=== PATIENT | male | born 1945 | race African-American/Black ===

== ENCOUNTER → 2016-04-01 | Outpatient (CLI) | payer OTHER ==
[2015-10-05 09:47] VITALS: BP 122/83
[~2016-04-01] MED LIST: AMLO5TAB2 PO; ASPI81TA2 PO; HYDR-2679 PO; IOHEXOL 180 MG/ML 10 ML VIAL. ONE; NAPR500T3 PO; NISO17TA3 PO; OMEP40CA5 PO; PARO10TA24 PO; SIMV10TA PO; TAMS0.4C97 PO; methylPREDNISolone ACETATE 40 MG/ML VIAL. ONE; methylPREDNISolone ACETATE 80 MG/ML VIAL. ONE
--- NOTE | 2016-04-02 03:26 | PAIN ---
DATE OF SERVICE: 04/01/2016 DIAGNOSES: Lumbar radiculopathy with lumbar spinal stenosis and lumbar spondylosis. HISTORY OF PRESENT ILLNESS: The patient is a 70-year-old male who returns for followup status post lumbar epidural steroid injection x 1 about 90% improvement in pain. The patient reports it is beginning to return now in the low back, bilateral lower extremities as was previously, but not nearly to baseline. The patient reports still aching, burning with some radiation into the bilateral posterior gluteus, posterior thighs, slightly worse on the right than the left, but present bilaterally. The patient reports it as an 8 on a scale of 10, sometimes burning, mostly aching, worse when he first gets up in the morning. Once he gets stretched and moved, then the pain does subside to some degree. The patient reports no new motor or sensory deficits, no new bowel or bladder incontinence or other complaints. PHYSICAL EXAMINATION: VITAL SIGNS: The patient's blood pressure 124/68, pulse 72, respirations 18, temperature 98.2 degrees Fahrenheit, weight is 157 pounds. GENERAL: The patient is awake, alert, oriented, appropriate, very pleasant demeanor. HEENT: Shows normocephalic, atraumatic. Extraocular movements are intact and symmetrical. Oral cavity, mucous membranes are moist and pink. Dentition is intact. NECK: Shows anterior throat supple without palpable lymphadenopathy noted. Swallow reflex is symmetrical. Neck shows full rotational motion of the cervical spine without difficulty. CHEST: Shows normal on inspection. Breath sounds are clear to auscultation bilaterally. HEART: Shows S1 and S2 clear. ABDOMEN: Soft, nontender, nondistended. No palpable organomegaly is noted. BACK: Shows spine grossly midline. Lumbar paraspinous musculature shows some moderate tenderness with palpation, but is symmetrical on inspection. Tenderness only diffusely and only with palpation in the low lumbar distribution, but is symmetrical. No tenderness over the sacrum or sacroiliac regions. The patient shows good rotational motion of the lumbar spine, both laterally greater than 10 degrees right and left as well as extension greater than 10 degrees, forward flexion to 45 degrees without difficulty. EXTREMITIES: Lower extremities show deep tendon reflexes 2+ in the patellar, 1+ tendo calcaneus tendons are equal. Motor exam is approximately 5/5 with left dorsiflexion, extension and 4/5 on the right dorsiflexion, extension, but intact. Options were discussed with the patient. The patient's old chart was reviewed as his current medication regimen updated. Current review of systems updated today as well. We will plan on a second lumbar epidural steroid injection today with fluoroscopic guidance. Risks were again discussed including, but not limited to bleeding, infection, possibility of epidural hematoma and subsequent neurologic compromise, dural puncture, headaches, spinal cord and/or nerve damage, side effects of steroid medication and poor results regarding pain control. The patient understands and wishes to proceed. The patient will return to clinic in approximately 2 weeks for followup. He was counseled to return appointment, activity level and side effects to be aware of. DIAGNOSIS: Lumbar radiculopathy with lumbar spinal stenosis and lumbar spondylosis. PROCEDURE: Lumbar epidural steroid injection, translaminar approach at the L5-S1 level with fluoroscopic guidance under sterile prep and drape using local anesthetic. Medication injected is 120 mg Depo-Medrol plus 10 mL of preservative-free normal saline and 2 mL of Isovue for contrast. Condition at discharge is stable. The patient tolerated procedure well, had no complications. LESTER HARRIS MD DR: ED/katheryn JOB#: [id number] / [id number]
== END ==
LOC: PNCL 08:29
PROVIDERS: ATTEND Anesthesiology
DX: M47.26 Other spondylosis with radiculopathy, lumbar region (principal); M48.06 Spinal stenosis, lumbar region; K63.5 Polyp of colon; I10 Essential (primary) hypertension; E78.00 Pure hypercholesterolemia, unspecified; Z72.0 Tobacco use
CPT/HCPCS: 62323; J1030; J1040

== ENCOUNTER → 2016-06-12 | Outpatient (CLI) | payer OTHER ==
[2015-10-05 09:47] VITALS: BP 122/83
[~2016-06-12] MED LIST changes: -IOHEXOL 180 MG/ML 10 ML VIAL. ONE; -methylPREDNISolone ACETATE 40 MG/ML VIAL. ONE; -methylPREDNISolone ACETATE 80 MG/ML VIAL. ONE
--- NOTE | 2016-06-12 16:40 | PAIN ---
DATE OF SERVICE: 06/12/2016 PROGRESS NOTE FOR PAIN CLINIC. DIAGNOSES: Lumbar radiculopathy with lumbar spinal stenosis and lumbar spondylosis. HISTORY OF PRESENT ILLNESS: The patient is a 70-year-old male, who returns for followup status post lumbar epidural steroid injection x 2. The patient reports significant decrease in pain about 80% overall which has been returning now in the low back and right lower extremity. The patient reports pain in the low back, posterior gluteus, posterior thigh and the right leg, some in the lateral thigh, radiates into the posterior lower leg radiating to the ankle with activity, standing, walking, changing positions, also sitting in a car for prolonged. Over an hour, ____ the pain in the right leg as well. The patient reports otherwise doing fairly well. No new motor or sensory deficits, no new bowel or bladder incontinence. Just increased pain across the low back into the right leg, right posterior gluteus and lower leg as noted. The patient reports it is 8 on a scale of 10, it is intermittent, throbbing, aching, worse in the morning, better with lying down or sitting, but again riding the car for prolonged. He has increasing pain significantly. The patient responded very well to the last injection, which was 04/01/2016 until the last 1-2 weeks. The patient reports otherwise no new motor or sensory deficits, no new bowel or bladder incontinence or other complaints. PHYSICAL EXAMINATION: VITAL SIGNS: The patient's blood pressure 141/72, pulse 68, respirations 18, temperature is 98.1 degrees Fahrenheit, height is 5 feet 8 inches, 154 pounds. GENERAL: The patient is awake, alert, oriented, appropriate, very pleasant demeanor. HEENT: Head shows normocephalic, atraumatic. Extraocular movements are intact and symmetrical. Oral cavity, mucous membranes are moist and pink. Dentition is intact. NECK: Shows anterior throat supple without palpable lymphadenopathy noted. Swallow reflex is symmetrical. CHEST: Shows normal on inspection. Breath sounds are clear to auscultation bilaterally. HEART: Shows S1 and S2 clear. No murmurs auscultated. ABDOMEN: Soft, nontender, nondistended. No palpable organomegaly is noted. No rebound or guarding demonstrated. BACK: Shows spine grossly midline. Normal appearing thoracic kyphosis and lumbar lordotic curvature. Lumbar paraspinous musculature shows symmetrical on inspection with palpation shows some [id number] tenderness in the low lumbar distribution bilaterally, but symmetrical without evidence of atrophy, hypertrophy, no radiation or trigger points. The patient shows good rotation and motion of the lumbar spine, both laterally as well as extension and flexion without significant pain reported. No tenderness over the spinous processes over the sacrum. LOWER EXTREMITIES: Show deep tendon reflexes 2+ in the patellar and 1+ tendo calcaneus tendons. Motor exam is approximately 4 on a scale of 5 with right dorsiflexion and extension and 5/5 on the left. The patient shows mild straight leg raise positive on the right side about 45 degrees. This is relieved with knee flexion, left side is negative. Peripheral pulses are 1+ posterior tibial and dorsalis pedis pulses. No peripheral edema is noted. No clubbing, no cyanosis. Options were discussed with the patient and the patient's old chart was reviewed, his current medication regimen and updated. Current review of systems updated today as well and we will preauthorize the patient for a third lumbar epidural steroid injection as he done very well with this in the past, now with radicular pain in the right leg, increasing over the past week or 2. The patient was given refill for hydrocodone as well as instructions, side effects to be aware that he uses is sparingly and has had only 75 tablets since March of this year. The patient was given instruction as well as side effects to be aware of with the medication and will follow up in approximately 1 week. We will plan on third lumbar epidural steroid injection at that time. LESTER HARRIS MD DR: ED/katheryn JOB#: [id number] / [id number]
== END | disposition home or self-care (01) ==
LOC: PNCL 09:05
PROVIDERS: ATTEND Anesthesiology
DX: M54.16 Radiculopathy, lumbar region (principal); M48.06 Spinal stenosis, lumbar region; M47.896 Other spondylosis, lumbar region
CPT/HCPCS: 99212

== ENCOUNTER → 2016-06-26 | Outpatient (CLI) | payer OTHER ==
[2015-10-05 09:47] VITALS: BP 122/83
[~2016-06-26] MED LIST changes: +IOHEXOL 180 MG/ML 10 ML VIAL. ONE; +methylPREDNISolone ACETATE 40 MG/ML VIAL. ONE; +methylPREDNISolone ACETATE 80 MG/ML VIAL. ONE
--- NOTE | 2016-06-27 02:09 | PAIN ---
DATE OF SERVICE: 06/26/2016 PROGRESS NOTE FOR PAIN CLINIC. DIAGNOSES: Lumbar radiculopathy with lumbar spondylosis and lumbar spinal stenosis. HISTORY OF PRESENT ILLNESS: The patient is a 70-year-old male who returns for followup status post lumbar epidural steroid injections x 2, last injection was on 04/01/2016. The patient reports he did very well with these, about 90% improvement overall. He is down to about 70% improvement at this time. The pain is beginning to return now in his low back, right lower extremity, some in the left lower extremity as well, mostly on the right side with walking, standing, changing positions and becoming more noticeable. The patient reports anywhere from a 2-8 on a scale of 10, currently at 2 on a scale of 10 today while sitting, but 8 when he is on his feet, walking around or even driving the car for more than an hour or so. The patient reports no new motor or sensory deficits, no new bowel or bladder incontinence or other complaints. PHYSICAL EXAMINATION: VITAL SIGNS: Today, the patient's blood pressure is 129/59, pulse 63, respirations are 18, temperature 97.5 degrees Fahrenheit, height is 5 feet 8 inches, weight is 157 pounds. GENERAL: The patient is awake, alert, oriented, appropriate, very pleasant demeanor. HEENT: Head shows normocephalic, atraumatic. Extraocular movements are intact, symmetrical. Oral cavity, mucous membranes are moist and pink. Dentition is intact. NECK: Shows anterior throat supple. Neck shows full rotational motion of the cervical spine without difficulty. CHEST: Shows breath sounds clear to auscultation bilaterally. HEART: Shows S1 and S2 clear. ABDOMEN: Soft, nontender, nondistended. No palpable organomegaly is noted. BACK: Shows spine grossly in midline. The patient's lumbar paraspinous musculature shows some moderate tenderness with palpation, but only diffusely bilaterally in the middle and lower distribution. Muscle girth is normal and symmetrical. No trigger points. No radiation of pain. No tenderness over the sacrum or sacroiliac regions. EXTREMITIES: Lower extremities show deep tendon reflexes at 2+ in the patellar tendons. Motor exam is strong with approximately 4 on a scale of 5 with right dorsiflexion and extension and 5/5 on the left, but intact. PLAN: Options were discussed with the patient. We will proceed with a third in the series of lumbar epidural steroid injection using fluoroscopic guidance. Risks were again discussed including, but not limited to bleeding, infection, possibility of epidural hematoma, subsequent neurologic compromise, dural puncture, headaches, spinal cord and/or nerve damage, side effects of steroid medication and poor results regarding pain control. The patient understands and wishes to proceed. The patient will return to the clinic in approximately 2 weeks for followup. He was counseled on return appointment, activity level and side effects to be aware of. DIAGNOSIS: Lumbar radiculopathy with lumbar spinal stenosis and spondylosis. PROCEDURE: Lumbar epidural steroid injection in translaminar approach at L5-S1 level using C-arm fluoroscopic guidance under sterile prep and drape using local anesthetic. MEDICATION INJECTED: A 120 mg of Depo-Medrol plus 10 mL of preservative-free normal saline and 2 mL of Isovue for contrast. CONDITION AT DISCHARGE: Stable. The patient tolerated procedure well, had no complications. LESTER HARRIS MD DR: ED/katheryn JOB#: [id number] / [id number]
== END | disposition home or self-care (01) ==
LOC: PNCL 09:39
PROVIDERS: ATTEND Anesthesiology
DX: M47.26 Other spondylosis with radiculopathy, lumbar region (principal); M48.06 Spinal stenosis, lumbar region; E78.00 Pure hypercholesterolemia, unspecified; I10 Essential (primary) hypertension; Z72.0 Tobacco use
CPT/HCPCS: 62323; J1030; J1040

== ENCOUNTER → 2016-07-10 | Outpatient (CLI) | payer OTHER ==
[2015-10-05 09:47] VITALS: BP 122/83
[~2016-07-10] MED LIST changes: -IOHEXOL 180 MG/ML 10 ML VIAL. ONE; -methylPREDNISolone ACETATE 40 MG/ML VIAL. ONE; -methylPREDNISolone ACETATE 80 MG/ML VIAL. ONE
--- NOTE | 2016-07-10 23:55 | PAIN ---
DATE OF SERVICE: 07/10/2016 PROGRESS NOTE FOR PAIN CLINIC DIAGNOSES: Lumbar radiculopathy with lumbar spinal stenosis, lumbar spondylosis. HISTORY OF PRESENT ILLNESS: The patient is a 70-year-old male, who returns for followup status post lumbar epidural steroid injection x 3, last seen on 06/26/2016. The patient did very well, approximately about 85% improvement overall in the low back and right lower extremity. The patient reports the pain is beginning to return to moderate extend in the low back and right hip radiating to the posterior gluteus, posterior lateral thigh, posterior upper thigh, lower thigh into the posterior calf and foot on the right side. The patient reports it is ____ with standing and walking. He is having more in the upper leg and hip as well as lower leg, but radiating fairly significantly. The patient reports he has been doing better with lying down or sitting, has not been waking him from sleep recently, rates as 6-7 on a scale of 10 is worst again mostly with walking, standing, aching, burning, sharp and shooting pain in the right leg and low back. The patient has been taking hydrocodone which reports ____ reduce pain about 50%-75% depending when he takes it, the shots of the injections have helped much more significantly. The patient is somewhat frustrated as they are not lasting more than about 3 weeks on average. The patient reports no new motor or sensory deficits, no new bowel or bladder incontinence or other complaints. PHYSICAL EXAMINATION: VITAL SIGNS: Today, the patient's blood pressure is 131/60, pulse 67, respirations 18, temperature 98.1 degrees Fahrenheit, height is 5 feet 8 inches, weight ____ pounds. GENERAL: The patient is awake, alert, oriented, appropriate, very pleasant demeanor. HEENT: Head shows normocephalic, atraumatic. Extraocular movements are intact and symmetrical. Oral cavity, mucous membranes moist and pink. Dentition is intact. NECK: Shows anterior throat supple without palpable lymphadenopathy noted. Swallow reflex is symmetrical. CHEST: Shows normal on inspection. Breath sounds clear to auscultation bilaterally. HEART: Shows S1 and S2 clear. ABDOMEN: Soft, nontender, nondistended. No palpable organomegaly. No rebound or guarding demonstrated. BACK: Shows spine grossly midline. Lumbar paraspinous musculature is symmetrical on inspection with palpation shows some moderate tenderness diffusely bilaterally in the lumbar paraspinous muscles, more on the right than the left, but without asymmetry. The patient shows no difficulty with rotational motion of the lumbar spine, both laterally greater than 10 degrees right and left as well as extension greater than 10 degrees, forward flexion 45 degrees without significant pain reported. LOWER EXTREMITIES: Show deep tendon reflexes 2+ in the patellar, 1+ tendo calcaneus tendons. Motor exam is approximately 4 on a scale 5 with right dorsiflexion, extension at 5/5 on the left. Quadriceps and hamstring flexion 4/5, right, 5/5 on the left as well. The patient's straight leg raise is very mildly positive on the right side at about 45 degrees, decreased with knee flexion, left side is negative. Gaenslen's and Rosalio's maneuvers are negative for any pain reproduction bilaterally as well. The patient is able to stand, stand on his toes without significant difficulty walking without the assistive devices has been fairly limited, appears to favor his right lower extremity fairly noticeably with walking. Options were discussed with the patient and the patient's old chart was reviewed as his current medication regimen updated. Current review of systems updated today as well. We will preauthorize the patient for a lumbar epidural steroid injection. He did very well with these in the past and would like to proceed with this. The patient will continue walking and doing physical therapy exercises as he has been doing for several years now at home and he does this every morning and in the evening as well, was encouraged to do this and maintain activity as tolerated, especially stretching and walking. The patient will be given refill prescription for hydrocodone with instructions, side effects to be aware of discussed as well and will follow up in approximately 2 weeks and plan on lumbar epidural steroid injection at that time. LESTER HARRIS MD DR: ED/katheryn JOB#: [id number] / [id number]
== END | disposition home or self-care (01) ==
LOC: PNCL 09:04
PROVIDERS: ATTEND Anesthesiology
DX: M47.26 Other spondylosis with radiculopathy, lumbar region (principal); M48.06 Spinal stenosis, lumbar region
CPT/HCPCS: 99212

== ENCOUNTER → 2016-09-24 | Outpatient (CLI) | payer OTHER ==
[2015-10-05 09:47] VITALS: BP 122/83
[~2016-09-24] MED LIST changes: +ASPI-630 PO; -ASPI81TA2 PO; -PARO10TA24 PO; +PARO10TA57 PO
== END | disposition home or self-care (01) ==
LOC: PNCL 09:01
PROVIDERS: ATTEND Anesthesiology
DX: M48.06 Spinal stenosis, lumbar region (principal); M47.26 Other spondylosis with radiculopathy, lumbar region
CPT/HCPCS: 99212

== ENCOUNTER → 2016-10-08 | Outpatient (CLI) | payer OTHER ==
[2015-10-05 09:47] VITALS: BP 122/83
[~2016-10-08] MED LIST changes: +IOHEXOL 180 MG/ML 10 ML VIAL. ONE; +methylPREDNISolone ACETATE 40 MG/ML VIAL. ONE; +methylPREDNISolone ACETATE 80 MG/ML VIAL. ONE
--- NOTE | 2016-10-09 00:06 | PAIN ---
DATE OF SERVICE: DIAGNOSIS: Lumbar radiculopathy with lumbar spinal stenosis and lumbar spondylosis. HISTORY OF PRESENT ILLNESS: The patient is a 70-year-old male who returns for followup status post lumbar epidural steroid injections x 3, last seen on 06/26/2016. The patient did very well with about 90% improvement after the injection with pain returning now over the past month or so in the low back and bilateral lower extremities, worse on the right than the left. The patient reports it is worse with walking, standing, change in positions ____ is a burning, cramping, dull pain radiating to the right leg, mostly some in the left, but mostly on the right side. The patient reports it awakes him from sleep about 4-5 times at night he has reposition or takes pain medication at night. He is taking hydrocodone, which he is doing well with without side effects. He does decrease the pain by about 50-60% at this time. The patient reports no new motor or sensory deficits, no new bowel or bladder incontinence. PHYSICAL EXAMINATION: VITAL SIGNS: The patient's blood pressure 128/65, pulse 77, respirations 20, temperature 97.7 degrees Fahrenheit, height is 5 feet 8 inches, weight is ___ pounds. GENERAL: The patient is awake, alert, oriented, appropriate, very pleasant demeanor. HEENT: Head shows normocephalic, atraumatic. Extraocular movements are intact and symmetrical. Oral cavity shows mucous membranes moist and pink. Dentition is intact. NECK: Shows anterior throat supple without palpable lymphadenopathy noted. Swallow reflex is symmetrical. CHEST: Shows normal on inspection. Breath sounds are clear to auscultation bilaterally. HEART: Shows S1 and S2 clear. ABDOMEN: Soft, nontender, nondistended. BACK: Shows spine grossly midline. Lumbar paraspinous musculature shows some flattening of the lumbar curvature. The paraspinous musculature shows some symmetry without atrophy and hypertrophy, with palpation shows very firm musculature in the upper, middle and lower distribution of paraspinous muscles, diffusely tender mostly in the middle and lower distribution bilaterally and equal bilaterally. No tenderness over the spinous processes, sacrum or sacroiliac regions. The patient shows good rotation and motion of lumbar spine, both laterally as well as extension and flexion without difficulty. EXTREMITIES: Lower extremities show deep tendon reflexes at 2+ in the patellar, 1+ tendocalcaneus tendons. Motor exam is strong with 5/5 dorsiflexion, extension, quadriceps and hamstring flexion equal. Options were discussed with the patient and the patient's old chart was reviewed as his current medication regimen updated. Current review of systems updated today as well. PLAN: We will proceed with a lumbar epidural steroid injection today is the first in the series with fluoroscopic guidance. Risks were again discussed including, but not limited to bleeding, infection, possibility of epidural hematoma, subsequent neurologic compromise, dural puncture, headaches, spinal cord and/or nerve damage, side effects of steroid medication and poor results regarding pain control. The patient understands and wishes to proceed. The patient will return to clinic in approximately 2 weeks for followup, was counseled on return appointment, activity level and side effects to be aware of. DIAGNOSIS: Lumbar radiculopathy with lumbar spinal stenosis and spondylosis. PROCEDURES: Lumbar epidural steroid injection in translaminar approach at L5-S1 level using C-arm fluoroscopic guidance under sterile prep and drape using local anesthetic. MEDICATION INJECTED: 120 mg Depo-Medrol plus 10 mL of preservative-free normal saline and 2 mL of Isovue for contrast. CONDITION AT DISCHARGE: Stable. The patient tolerated procedure well, had no complications. LESTER HARRIS MD DR: ED/katheryn JOB#: [id number] / [id number]
== END | disposition home or self-care (01) ==
LOC: PNCL 08:20
PROVIDERS: ATTEND Anesthesiology
DX: M47.26 Other spondylosis with radiculopathy, lumbar region (principal); M48.06 Spinal stenosis, lumbar region; E78.00 Pure hypercholesterolemia, unspecified; I10 Essential (primary) hypertension; Z72.0 Tobacco use; Z88.8 Allergy status to other drugs, medicaments and biological substances
CPT/HCPCS: 62323; J1030; J1040

== ENCOUNTER → 2017-01-06 | Outpatient (CLI) | payer OTHER ==
[2015-10-05 09:47] VITALS: BP 122/83
[~2017-01-06] MED LIST changes: -IOHEXOL 180 MG/ML 10 ML VIAL. ONE; -NAPR500T3 PO; +NAPR500T4 PO; -methylPREDNISolone ACETATE 40 MG/ML VIAL. ONE; -methylPREDNISolone ACETATE 80 MG/ML VIAL. ONE
--- NOTE | 2017-01-06 09:41 | PAIN ---
DATE OF SERVICE: 01/06/2017 DATE OF SERVICE: 01/06/2017 DIAGNOSES: Lumbar radiculopathy with lumbar spinal stenosis, lumbar spondylosis. HISTORY OF PRESENT ILLNESS: The patient is a 71-year-old male who returns for followup status post lumbar epidural steroid injections, most recently seen in 10/08/2016. The patient did very well with this with about 80%-90% improvement in his low back and right lower extremity. The pain is returning now over the past few weeks in the low back, right posterior gluteus, posterior thigh, posterior calf, in a L5-S1 dermatomal distribution as it has been previously. The patient reports tingling, burning, dull becoming more noticeable, worse with walking, standing, is beginning to walk with a limp once again, which had cleared up after the last injection. Reports no new motor or sensory deficits, still significant pain with ambulation and changing positions. It is waking him from sleep occasionally, but is much better with lying down or sitting down, worse with walking, standing, weightbearing. The patient reports no new motor or sensory deficits, no new bowel or bladder incontinence. The patient reports his pain is a 9 on a scale of 10 at its worst, 7 on average, 5 at its least, and is a 5 today. The patient reports no new changes, no bowel or bladder incontinence. PHYSICAL EXAMINATION: VITAL SIGNS: The patient's blood pressure is 133/80, pulse 67, respirations 18, temperature is 97.2 degrees Fahrenheit, height is 5 feet 8 inches, weight is 159 pounds. GENERAL: The patient is awake, alert, oriented, appropriate, very pleasant demeanor. HEENT: Head shows normocephalic, atraumatic. Extraocular movements intact, symmetrical. Oral cavity, mucous membranes are moist and pink. Dentition is intact. NECK: Shows anterior throat supple without palpable lymphadenopathy noted. Swallow reflex is symmetrical. Neck shows full rotational motion of the cervical spine without difficulty. CHEST: Shows breath sounds clear to auscultation bilaterally. Normal on inspection. HEART: Shows S1 and S2 clear. No murmurs auscultated. ABDOMEN: Soft, nontender, nondistended. No palpable organomegaly. No rebound or guarding demonstrated. BACK: Shows spine grossly in midline. Normal appearing thoracic kyphosis and some mild flattening of lumbar lordotic curvature. Lumbar paraspinous musculature shows symmetrical on inspection, on palpation shows some moderate tenderness throughout the upper, middle and lower distribution, slightly more on the right than the left in the low lumbar distribution of paraspinous muscles, but only diffusely without radiation. The patient has good rotational motion both laterally as well as extension and flexion without difficulty. LOWER EXTREMITIES: Showed deep tendon reflexes 2+ in the patellar, 1+ tendo calcaneus tendons. Motor exam is approximately 4 on a scale 5 with right-sided dorsiflexion and extension, 5/5 on the left. Quadriceps and hamstring flexion was 5/5 and equal bilaterally. Peripheral pulses are 1+ posterior tibial. No peripheral edema is noted. No clubbing, no cyanosis. Straight leg raise noted to be positive on the right side at approximately 40 degrees, which is decreased with knee flexion, left side is negative. PLAN: Options were discussed with the patient and the patient's old chart was reviewed as his current medication regimen updated. Current review of systems updated today as well. We will preauthorize the patient for a lumbar epidural steroid injection. He has done very well with these in the past. The pain returning now in a radicular pattern again in L5-S1 dermatomal distribution on the right side with some minor weakness with dorsiflexion and extension noted as well and the patient noticeably limping with his gait favoring the right leg. The patient will return to clinic in approximately 1 week. We will plan on a lumbar epidural steroid injection at that time. The patient was given refill of hydrocodone 7.5 mg with instructions, side effects to be aware of with the medication as well discussed. The patient is also seeing a staff trainer at the [facility], encouraged him to maintain this as well and have him work with exercises, stretching and strengthening as well as gait training with the low back and legs. He will continue with his [facility] training in the meantime as well. LESTER HARRIS MD DR: ED/katheryn JOB#: [id number] / [id number]
== END | disposition home or self-care (01) ==
LOC: PNCL 08:12
PROVIDERS: ATTEND Anesthesiology
DX: M54.16 Radiculopathy, lumbar region (principal); M48.061 Spinal stenosis, lumbar region without neurogenic claudication; M47.896 Other spondylosis, lumbar region
CPT/HCPCS: 99212

== ENCOUNTER → 2017-02-03 | Outpatient (CLI) | payer OTHER ==
[2015-10-05 09:47] VITALS: BP 122/83
--- NOTE | 2017-02-03 12:28 | PAIN ---
DATE OF SERVICE: 02/03/2017 DIAGNOSES: Lumbar radiculopathy with lumbar spinal stenosis and lumbar spondylosis. HISTORY OF PRESENT ILLNESS: The patient is a 71-year-old male who returns for followup status post lumbar epidural steroid injection x 1 on 01/20/2017. The patient reports a 100% improvement initially for about the first 2 to 2-1/2 weeks. The pain is returning over the last few days, increasing in his low back and right lower extremity as it was previously, but again overall about a 75% improvement even to this day. The patient reports it is coming back. He is limping a bit on the right side, which has been new for him. It has been going on for a few weeks as well with some increased weakness in his right leg. The pain is well controlled to some extent, again returning but with some increased weakness in the right leg and some limping in the right leg with walking or standing. The patient reports it is better with sitting or lying down. Awakens him from sleep occasionally, but only very rarely if he lays on his right side. The patient reports his pain is a 9 on a scale of 10 at its worst, 7 on average, 6 at its least and is 6 today. The patient reports it is burning, dull, radiating, shooting, sometimes sharp or aching pain in the back itself. The patient reports no new motor or sensory deficits, no new bowel or bladder incontinence or other complaints. PHYSICAL EXAMINATION: VITAL SIGNS: Today, the patient's blood pressure is 130/90, pulse 54, respirations 18, temperature 98.1 degrees Fahrenheit, weight is 160 pounds. GENERAL: The patient is awake, alert, oriented, appropriate, very pleasant demeanor. HEENT: Head shows normocephalic, atraumatic. Extraocular movements are intact, symmetrical. Oral cavity: Mucous membranes are moist and pink. Dentition is intact. NECK: Shows anterior throat supple without palpable lymphadenopathy noted. Swallow reflex is symmetrical. CHEST: Shows normal on inspection. Breath sounds are equal and clear bilaterally. HEART: Shows S1, S2 clear. No murmurs auscultated. ABDOMEN: Soft, nontender, nondistended. No palpable organomegaly. No rebound or guarding demonstrated. MUSCULOSKELETAL: Back shows spine grossly in the midline. Normal appearing thoracic kyphosis and lumbar lordotic curvature. Lumbar paraspinous muscle shows some symmetry with inspection, on palpation shows some moderate tenderness with palpation, but only diffusely bilaterally without trigger points, without radiation. No tenderness over the sacrum or sacroiliac regions. The patient has good rotational motion both laterally greater than 10 degrees right and left as well as extension greater than 10 degrees, forward flexion 45 degrees without exacerbation of pain. Lower extremities show deep tendon reflexes 2+ in the patellar and 1+ tendo calcaneus tendons are equal. Motor exam is strong with 5/5 dorsiflexion and extension, quadriceps and hamstring flexion is 4/5 on the right and 5/5 on the left. Peripheral pulses are 1+ posterior tibial and dorsalis pedis pulses. The patient still has a very mild straight leg raise, positive on the right side about 45 degrees with pain radiating from the posterior gluteus to the posterior thigh, but is decreased with knee flexion. Left side is negative. Gaenslen's and Rosalio's maneuvers are negative bilaterally. Options were discussed with the patient. The patient's old chart was reviewed. His current medication regimen updated. Current review of systems updated today as well. We will preauthorize the patient for a second lumbar epidural steroid injection. He did very well with the first one, the pain is returning now in a radicular pattern, mostly in the L5-S1 dermatomal distribution on the right side as noted with some increased weakness in the right lower extremity. Also, discussed ordering a repeat MRI, it has been since 2013 ____ has been looked at with a disk extrusion at the L5-S1 level on the right with some increased weakness and pain may be progressing. We will check an MRI scan and evaluate that once that is completed. The patient was given a Medrol Dosepak to try in the meantime with instructions and side effects to be aware of. Also, refill on his hydrocodone with instructions and side effects to be aware of as well. LESTER HARRIS MD DR: ED/katheryn JOB#: [id number] / [id number]
== END | disposition home or self-care (01) ==
LOC: PNCL 09:20
PROVIDERS: ATTEND Anesthesiology
DX: M54.16 Radiculopathy, lumbar region (principal); M48.061 Spinal stenosis, lumbar region without neurogenic claudication; M47.896 Other spondylosis, lumbar region
CPT/HCPCS: G0463

== ENCOUNTER → 2017-02-17 | Outpatient (CLI) | payer OTHER ==
[2015-10-05 09:47] VITALS: BP 122/83
[~2017-02-17] MED LIST changes: +IOHEXOL 180 MG/ML 10 ML VIAL. ONE; +methylPREDNISolone ACETATE 40 MG/ML VIAL. ONE; +methylPREDNISolone ACETATE 80 MG/ML VIAL. ONE
--- NOTE | 2017-02-17 11:37 | PAIN ---
DATE OF SERVICE: 02/17/2017 PROGRESS NOTE FOR PAIN CLINIC DIAGNOSES: Lumbar radiculopathy with lumbar spinal stenosis and lumbar spondylosis. HISTORY OF PRESENT ILLNESS: The patient is a 71-year-old male who returns for followup status post lumbar epidural steroid injection x 1. This series, the patient reports very well with this, about 75% improvement, returns today with preauthorization for a second injection as the pain has been returning in the low back, right lower extremity as it was previously and mostly in the posterior gluteus, posterior thigh, lateral thigh into the posterior calf radiating to the foot and lateral aspect of the foot as well as the lower leg on the right side. The patient reports it is a 9 on a scale of 10 at its worst, 8 on average and 7 at least and is 8 today. The patient reports it is dull alternating with burning, cramping, radiating and shooting pain occasionally unbearable but worse with standing, walking, changing positions, better with sitting down or lying down, awaking from sleep over the last week or so, but not every night. The patient reports no new motor or sensory deficits. No new bowel or bladder incontinence or other complaints. PHYSICAL EXAMINATION: VITAL SIGNS: The patient's blood pressure 132/73, pulse 50, respirations 18, temperature 97.8 degrees Fahrenheit, height 5 feet 8 inches and weight is 160 pounds. GENERAL: The patient is awake, alert, oriented, appropriate and very pleasant demeanor. HEENT: Head shows normocephalic and atraumatic. Extraocular muscles are intact and symmetrical. Oral cavity: Mucous membranes moist and pink. Dentition is intact. NECK: Shows anterior throat supple without palpable lymphadenopathy noted. Swallow reflex symmetrical. CHEST: Shows normal on inspection. Breath sounds clear to auscultation bilaterally. HEART: Shows S1 and S2 clear. ABDOMEN: Soft, nontender and nondistended. No palpable organomegaly. No rebound or guarding demonstrated. BACK: Shows spine grossly in the midline. Normal appearing thoracic kyphosis and mild flattening lumbar lordotic curvature. The patient's lumbar paraspinous muscle shows symmetrical on inspection with palpation shows some moderate tenderness with palpation bilaterally but only diffusely in the low lumbar distribution without radiation. No tenderness over the sacrum or sacroiliac regions. The patient has good rotational motion of the lumbar spine, both laterally as well as extension and flexion without difficulty. EXTREMITIES: Lower extremities show deep tendon reflexes 2+ in the patellar, 1+ talocalcaneal tendons are equal. Motor exam is approximately 5/5 with dorsiflexion, extension, quadriceps and hamstring flexion and 4/5 with right quadriceps and hamstring flexion only. Peripheral pulses are 1+ posterior tibial and dorsalis pedis pulses. No peripheral edema is noted. No clubbing. No cyanosis. Options were discussed with the patient. The patient's old chart was reviewed as well as current medication regimen updated. Current review of systems updated today as well. We will proceed with a second in the series lumbar epidural steroid injection with fluoroscopic guidance. Risks were again discussed including, but not limited to bleeding, infection, possibility of epidural hematoma, subsequent neurologic compromise, dural puncture, headaches, spinal cord and/or nerve damage, side effects of steroid medication and poor results regarding pain control. The patient understands and wished to proceed. The patient to return to clinic in approximately 2 weeks for followup, was counseled currently at a level and side effects to be aware of. DIAGNOSIS: Lumbar radiculopathy with lumbar spinal stenosis and lumbar spondylosis. PROCEDURE: Lumbar epidural steroid injection, translaminar approach at the L5-S1 level using C-arm fluoroscopic guidance under sterile prep and drape using local anesthetic. MEDICATION INJECTED: A total of 120 mg Depo-Medrol plus 10 mL of preservative-free normal saline and 2 mL of Isovue for contrast. CONDITION AT DISCHARGE: Stable. The patient tolerated the procedure well and had no complications. LESTER HARRIS MD DR: ED/katheryn JOB#: [id number] / [id number]
== END | disposition home or self-care (01) ==
LOC: PNCL 09:39
PROVIDERS: ATTEND Anesthesiology
DX: M47.26 Other spondylosis with radiculopathy, lumbar region (principal); M48.061 Spinal stenosis, lumbar region without neurogenic claudication; E78.00 Pure hypercholesterolemia, unspecified; I10 Essential (primary) hypertension; Z72.0 Tobacco use; Z88.8 Allergy status to other drugs, medicaments and biological substances
CPT/HCPCS: 62323; J1030; J1040

== ENCOUNTER → 2017-06-23 | Outpatient (CLI) | payer OTHER | END | disposition home or self-care (01) | LOC: PNCL 09:46 | DX: M54.16 Radiculopathy, lumbar region (principal); M48.061 Spinal stenosis, lumbar region without neurogenic claudication; M47.896 Other spondylosis, lumbar region | CPT/HCPCS: 99212 ==

== ENCOUNTER → 2017-07-07 | Outpatient (CLI) | payer OTHER ==
[~2017-07-07] MED LIST changes: -AMLO5TAB2 PO; -ASPI-630 PO; -HYDR-2679 PO; +IOHEXOL 180 MG/ML 10 ML VIAL.; -IOHEXOL 180 MG/ML 10 ML VIAL. ONE; -NAPR500T4 PO; -NISO17TA3 PO; -OMEP40CA5 PO; -PARO10TA57 PO; -SIMV10TA PO; -TAMS0.4C97 PO; +methylPREDNISolone ACETATE 40 MG/ML VIAL.; -methylPREDNISolone ACETATE 40 MG/ML VIAL. ONE; +methylPREDNISolone ACETATE 80 MG/ML VIAL.; -methylPREDNISolone ACETATE 80 MG/ML VIAL. ONE
== END ==
LOC: PNCL 09:42
DX: M54.16 Radiculopathy, lumbar region (principal); M48.061 Spinal stenosis, lumbar region without neurogenic claudication
CPT/HCPCS: 62323; J1030; J1040; Q9965

== ENCOUNTER → 2018-04-09 | Outpatient (CLI) | payer OTHER ==
[2015-10-05 09:47] VITALS: BP 122/83
[~2018-04-09] MED LIST changes: +AMLO5TAB7 PO; +ASPI-630 PO; +HYDR-2679 PO; -IOHEXOL 180 MG/ML 10 ML VIAL.; +NAPR-514 PO; +NISO17TA3 PO; +OMEP40CA5 PO; +PARO10TA57 PO; +SIMV10TA PO; +TAMS0.4C97 PO; -methylPREDNISolone ACETATE 40 MG/ML VIAL.; -methylPREDNISolone ACETATE 80 MG/ML VIAL.
--- NOTE | 2018-04-09 13:00 | RAD ---
MRI Lumbar Spine without contrast History: Worsening chronic low back pain with right leg radiculopathy Technique: Multiplanar, multi sequential noncontrast MR imaging was performed of the lumbar spine. Comparison: March 01, 2014 Findings: Lumbar vertebral body stature is overall maintained. There is advanced degenerative disc disease L2-3 through L5-S1 and to a lesser degree T12-L1 and L1-2 overall fairly similar. There is persistent variable endplate edema now greatest L2-3 and L3-4 and to lesser degree L4-5 and L5-S1, interval decrease at L5-S1 and L3-4 and interval increase at L2-3. There is no fluid in the intervertebral disc spaces. There is again reversal of the lordotic curvature more superiorly. There is again minimal grade 1 anterior spondylolisthesis T12-L1, L1-2, L3-4, T11-12 and minimal posterior subluxation L5 relative to S1. There is mild to moderate dextroscoliosis centered near L3, levoscoliosis of the thoracic spine not fully evaluated. There is very mild right lateral subluxation L4 relative to L5. T12-L1: This level was not included on the axial images. There is facet degenerative change and buckling of the ligamentum flavum somewhat greater on the left. There is mild to moderate narrowing of the right neural foramen. Spinal canal is not significantly narrowed. L1-L2: There is moderate buckling of the ligamentum flavum and right facet hypertrophic change. There is again posterior bulge, also likely very shallow extrusion more centrally extending slightly above the intervertebral disc space. Combination of findings results in overall moderate spinal stenosis with somewhat limited preserved subarachnoid space, narrowing of the far lateral recesses bilaterally. There is mild narrowing of the left neural foramen, right neural foramen overall adequate. L2-L3: There is again broad posterior bulge superimposed on disc osteophyte complex, somewhat more eccentric to the left lateral recess. There is mild to moderate buckling of the ligamentum flavum and mild facet degenerative change. There is mild prominence of posterior epidural fat. Combination of findings again results in fairly severe spinal stenosis although previously there was also extrusion in the right paracentral region/right lateral recess not seen on this exam. There is very limited preserved subarachnoid space. There is lateral recess stenosis bilaterally greater on the left, contact descending L3 nerve roots greater on the left. There is moderate to severe narrowing of the left neural foramen, minimal inferior distal narrowing on the right. L3-L4: There is moderate facet degenerative change greater on the left. There is [id number] buckling of the ligamentum flavum. There is mild partial uncovering of the posterior aspect of the disc due to spondylolisthesis. There is superimposed disc osteophyte complex and protrusion in the inferior left neural foramen and left extraforaminal region as seen previously. There is again fairly severe spinal stenosis, lateral recess stenosis greater on the left. There is impingement of the descending left L4 nerve root. There is severe narrowing of the left neural foramen with contact exiting left L3 nerve root in the neural foramen and proximal extraforaminal region as seen previously. Right neural foramen is overall adequate. L4-L5: There is again bulge somewhat greater in the right lateral recess. There is [id number] buckling of the ligament flavum and mild right greater than left facet degenerative change. Combination of findings results in moderate to severe spinal stenosis as seen previously with limited preserved subarachnoid space, lateral recess stenosis bilaterally greater on the right with impingement of the descending L5 nerve roots greater on the left neural foramen is adequate. There is again severe narrowing of the right neural foramen primarily from facet hypertrophic change in combination with disc osteophyte complex with impingement of the exiting right L4 nerve root. L5-S1: There is bulge superimposed on the posteriorly subluxed L5 vertebral body margin. There is again mild buckling of the ligamentum flavum greater on the right. There is similar mild right lateral recess stenosis and contact of the descending right S1 nerve root. Neural foramina are overall adequate. Disc osteophyte complex is again near the extraforaminal right L5 nerve root. Impression: 1. Findings are fairly similar compared with 2014 exam other than some variable change of endplate edema as stated. There is again fairly severe spinal stenosis L3-4 and L2-3, moderate to severe spinal stenosis at L4-5, and moderate spinal stenosis L1-2. There is variable lateral recess stenosis at these levels. 2. There is multilevel advanced lumbar degenerative disc disease greatest L2-3 to L5-S1. There is multilevel mild abnormal alignment as stated, multilevel facet degenerative change. 3. There is multilevel lumbar neural foramina compromise, more significant narrowing on the right at L4-5 and on the left at L2-3 and L3-4. Electronically signed by: Shaan Graham MD (04/09/2018 12:55 PM) [email or web address]
== END | disposition home or self-care (01) ==
LOC: MRI 11:02
PROVIDERS: ATTEND Psychiatry & Neurology Neurology
DX: S33.39XA Dislocation of other parts of lumbar spine and pelvis, initial encounter (principal); M48.061 Spinal stenosis, lumbar region without neurogenic claudication; M25.78 Osteophyte, vertebrae; M43.16 Spondylolisthesis, lumbar region; R60.0 Localized edema; X58.XXXA Exposure to other specified factors, initial encounter; Y93.89 Activity, other specified; Y92.89 Other specified places as the place of occurrence of the external cause; Y99.8 Other external cause status
CPT/HCPCS: 72148

== ENCOUNTER → 2018-05-21 | Outpatient (CLI) | payer OTHER ==
[2015-10-05 09:47] VITALS: BP 122/83
[~2018-05-21] MED LIST changes: +AMLO5TAB10 PO; -AMLO5TAB7 PO; +GABA300C18 PO
--- NOTE | 2018-05-21 21:51 | PAIN ---
DATE OF SERVICE: 05/21/2018 PROGRESS NOTE FOR PAIN CLINIC DIAGNOSES: Lumbar radiculopathy with lumbar spinal stenosis and lumbar spondylosis. HISTORY OF PRESENT ILLNESS: The patient is a 72-year-old male who returns for followup, last seen 07/07/2017 - the patient had a lumbar epidural steroid injection at that time. He did very well with about 85% improvement for a month and a half, for about 6-7 weeks. The patient reports the pain very gradually returned in his low back and right lower extremity, but over this past several months, this has become much more noticeable again; now has been more active and very obvious foot drop on the right side. He has seen a neurologist as well as neurosurgeon, who is recommending conservative measures at this time. Still has some pain in the low back into the right leg radiating into the posterior gluteus, posterior thigh, posterior calf and into the right foot with numbness and tingling, shooting pain, radiating, burning as well. The patient reports it is a 9 on a scale of 10 at its worst, 6 on average and a 5 at its least and is a 5 today. The patient reports no new motor or sensory deficits. Much better with sitting or lying down. Initially, he was increasing his activity, walking, doing activities around the house, getting out of the car much easier, traveling with ease and comfort. Until the last month or so, the pain has begun to return significantly. The patient reports no new motor or sensory deficits, but significant increase in foot drop on the right side, although the patient reports it has improved a little since he has seen the neurologist. The patient reports no new bowel or bladder incontinence or other complaints. PHYSICAL EXAMINATION: VITAL SIGNS: The patient's blood pressure is 154/79, pulse 85, respirations 18 and temperature is 98.0 degrees Fahrenheit. Height is 5 feet 8 inches, weighs 156 pounds. GENERAL: The patient is awake, alert, oriented and appropriate, with very pleasant demeanor. HEENT EXAMINATION: Shows normocephalic, atraumatic. Extraocular movements are intact and symmetrical. Oral cavity, mucous membranes are moist and pink. Dentition is intact. NECK: Shows anterior throat supple, without palpable lymphadenopathy noted. Swallow reflex is symmetrical. CHEST: Shows normal on inspection. Breath sounds are clear to auscultation bilaterally. HEART: Shows S1, S2 clear. No murmurs auscultated. ABDOMEN: Soft, nontender and nondistended. No palpable organomegaly is noted. No rebound or guarding demonstrated. BACK: Shows spine grossly in the midline. Normal-appearing thoracic kyphosis and lumbar lordotic curvature is slightly flattened. Lumbar paraspinous muscles show symmetrical on inspection. On palpation, it shows some moderate tenderness diffusely throughout the upper, middle and lower distribution of the paraspinous muscles. No tenderness over the spinous processes, sacrum or sacroiliac regions. The patient shows good rotational motion of the lumbar spine, both laterally as well as extension and flexion, without significant difficulty. EXTREMITIES: Lower extremities show deep tendon reflexes 2+ in the patellar, 1+ tendo calcaneus tendons. Motor exam is approximately 2-3 on a scale of 5 on the right with dorsiflexion, but good extension at 4/5. Quadriceps and hamstring flexion is 4/5 on the right, 5/5 on the left and intact with dorsiflexion, extension, quadriceps and hamstring flexion on the left side, at 5/5. Peripheral pulses are 1+ posterior tibial. No peripheral edema is noted. The patient does have a moderate straight leg raise on the right side at about 40 degrees, decreased with knee flexion, but not relieved. Left side is negative. The patient is walking with a cane now in his left hand and has a significant limp and does appear to favor the right lower extremity. Options were discussed with the patient. The patient's old chart was reviewed as was his current medication regimen updated. Current review of systems updated today as well and we will preauthorize the patient for a lumbar epidural steroid injection, as he has done very well with these in the past at L5-S1 dermatomal distribution with radiculopathy, persistent now with foot drop on the right side, somewhat more increased than on last visit. The patient will maintain stretching and strengthening exercises. He has been doing physical therapy exercise and had some physical therapy last year, still doing the exercises with those and walking as much as he can and keeping his cane with him. We encouraged him to do this as well. The patient will return once approved for a lumbar epidural steroid injection at L5-S1 level for an L5-S1 radiculopathy on the right side. LESTER HARRIS MD DR: David JOB#: [id number] / [id number]
== END | disposition home or self-care (01) ==
LOC: PNCL 09:46
PROVIDERS: ATTEND Anesthesiology
DX: M48.061 Spinal stenosis, lumbar region without neurogenic claudication (principal); M47.26 Other spondylosis with radiculopathy, lumbar region
CPT/HCPCS: G0463

== ENCOUNTER → 2018-06-04 | Outpatient (CLI) | payer OTHER ==
[2015-10-05 09:47] VITALS: BP 122/83
[~2018-06-04] MED LIST changes: +IOHEXOL 180 MG/ML 10 ML VIAL. ONE; +methylPREDNISolone ACETATE 40 MG/ML VIAL. ONE; +methylPREDNISolone ACETATE 80 MG/ML VIAL. ONE
--- NOTE | 2018-06-04 22:56 | PAIN ---
DATE OF SERVICE: 06/04/2018 PROGRESS NOTE FOR PAIN CLINIC DIAGNOSES: Lumbar radiculopathy with lumbar spinal stenosis and lumbar spondylosis. HISTORY OF PRESENT ILLNESS: The patient is a 72-year-old male, who returns for followup status post initial evaluation and preauthorization for epidural steroid injection. The patient would like to proceed with that today. He still complains pain in low back, right lower extremity as it was previously across the low back and the right posterior gluteus, lateral thigh, anterior thigh, medial thigh, medial lower leg into the right foot. The patient reports it is a 9 on a scale of 10 at its worst, 8 on average, 6 at its least and is 6 today. The patient reports tingling, burning, radiating, shooting pain, radiating to the right lower extremity, worse with walking, standing, change in positions. The patient is wearing a brace on his right foot today and is not using his cane. The patient reports it awakens him from sleep occasionally, but most of the time it is pretty comfortable with lying down or sitting much worse with standing and walking. The patient reports no new motor or sensory deficits. No new bowel or bladder incontinence or other complaints. PHYSICAL EXAMINATION: VITAL SIGNS: Blood pressure 147/76, pulse 83, respirations 18, temperature 98.2 degrees Fahrenheit, weight is 156 pounds. GENERAL: The patient is awake, alert, oriented, appropriate, very pleasant demeanor. HEENT: Head shows normocephalic, atraumatic. Extraocular movements are intact and symmetrical. Oral cavity: Mucous membranes moist and pink. Dentition is intact. NECK: Shows anterior throat supple without palpable lymphadenopathy noted. Swallow reflex is symmetrical. CHEST: Shows normal on inspection. Breath sounds clear to auscultation bilaterally. HEART: Shows S1, S2 clear. No murmurs auscultated. ABDOMEN: Soft, nontender, nondistended. No palpable organomegaly is noted. No rebound or guarding demonstrated. BACK: Shows spine grossly in the midline, normal-appearing thoracic kyphosis and some minor flattening of lumbar lordotic curvature. Lumbar paraspinous muscle shows symmetrical on inspection and palpation shows some moderate tenderness diffusely, but only diffusely without radiation. The patient has good rotational motion of lumbar spine, both laterally as well as extension and flexion. Right and left lateral rotation without difficulty. EXTREMITIES: The patient's lower extremities show deep tendon reflexes 2+ in the patella and tendo-calcaneus tendons are 1+. Motor exam is strong with approximately 3 on a scale of 5 with right ankle and 5/5 with left. Quadriceps and hamstring flexion are 5/5 bilaterally. Peripheral pulses are 1+ posterior tibial. No peripheral edema is noted. Options were discussed with the patient. The patient's old chart was reviewed as his current medication regimen updated. Current review of systems updated today as well. We will proceed with a lumbar epidural steroid injection today with fluoroscopic guidance. Risks were again discussed including, but not limited to bleeding, infection, possibility of epidural hematoma, subsequent neurologic compromise, dural puncture, headaches, spinal cord and/or nerve damage, side effects of steroid medication and poor results regarding pain control. The patient understands and wished to proceed. The patient to return to clinic in approximately 2 weeks for followup, was counseled on return appointment, activity level and side effects to be aware of. DIAGNOSIS: Lumbar radiculopathy with lumbar spinal stenosis and lumbar spondylosis. PROCEDURE: Lumbar epidural steroid injection, translaminar approach at the L5-S1 level using C-arm fluoroscopic guidance under sterile prep and drape using local anesthetic. MEDICATION INJECTED: A total of 120 mg Depo-Medrol plus 10 mL of preservative-free normal saline and 2 mL of Isovue for contrast. CONDITION AT DISCHARGE: Stable. The patient tolerated procedure well, had no complications. LESTER HARRIS MD DR: ED/katheryn JOB#: [id number] / [id number]
== END | disposition home or self-care (01) ==
LOC: PNCL 10:27
PROVIDERS: ATTEND Anesthesiology
DX: M48.061 Spinal stenosis, lumbar region without neurogenic claudication (principal); M47.26 Other spondylosis with radiculopathy, lumbar region; Z88.8 Allergy status to other drugs, medicaments and biological substances
CPT/HCPCS: 62323; J1030; J1040; Q9965

== ENCOUNTER → 2018-06-18 | Outpatient (CLI) | payer OTHER ==
[2015-10-05 09:47] VITALS: BP 122/83
[~2018-06-18] MED LIST changes: -IOHEXOL 180 MG/ML 10 ML VIAL. ONE; -methylPREDNISolone ACETATE 40 MG/ML VIAL. ONE; -methylPREDNISolone ACETATE 80 MG/ML VIAL. ONE
--- NOTE | 2018-06-19 01:30 | PAIN ---
DATE OF SERVICE: 06/18/2018 DIAGNOSES: Lumbar radiculopathy with lumbar spinal stenosis and lumbar spondylosis. HISTORY OF PRESENT ILLNESS: The patient is a 72-year-old male who returns for followup status post lumbar epidural steroid injection x 1. The patient reports about 80% improvement for the first 3-1/2 weeks or so. The patient reports he is still doing well today with pain in the low back and into the right greater than left lower extremity, radiating into posterior gluteus, posterior thigh, posterior calf on the right side into the foot as well. The patient reports a tingling and burning, on and off in intensity, rated 10 on a scale of 10 at its worst, 8 on average, 7 at its least and is a 7 today. The patient reports he increased his activity with greater ease and comfort with no problem, has been sleeping better at night, has been getting around better, doing work activities, household activities and traveling with much greater ease and comfort. The patient reports no new motor or sensory deficits, no new bowel or bladder incontinence, still significant pain in the low back and right lower extremity in an L5-S1 dermatomal distribution as previously. The patient is also taking hydrocodone, which reports it is doing quite well with no side effects. PHYSICAL EXAMINATION: VITAL SIGNS: Today shows blood pressure 129/76, pulse 91, respirations 18, temperature 98.2 degrees Fahrenheit, height 5 feet 8 inches, weighs 152 pounds. GENERAL: The patient is awake, alert, oriented, appropriate, very pleasant demeanor. HEENT: Head shows normocephalic, atraumatic. Extraocular movements are intact and symmetrical. Oral cavity: Mucous membranes moist and pink. Dentition is intact. NECK: Shows anterior throat supple without palpable lymphadenopathy noted. Swallow reflex symmetrical. CHEST: Shows normal with inspection. Breath sounds clear to auscultation bilaterally. HEART: Shows S1, S2 clear. No murmurs auscultated. ABDOMEN: Soft, nontender, nondistended. No palpable organomegaly is noted. No rebound or guarding demonstrated. BACK: Shows spine grossly in the midline. Normal appearing thoracic kyphosis and lumbar lordotic curvature. Lumbar paraspinous muscle shows symmetrical on inspection, on palpation shows some moderate tenderness diffusely in the low lumbar distribution, but only diffusely without radiation. EXTREMITIES: The patient's lower extremities show deep tendon reflexes at 1+ in the patellar and tendo calcaneus tendons are equal and symmetrical. Motor exam shows approximately 3 on a scale 5 at the right ankle with dorsiflexion and extension, 5/5 on the left. The patient initially wearing a brace on his right ankle as well which is helping him ambulate. The patient's straight leg raise is slightly positive on the right side about 45 degrees with pain radiating into posterior gluteus, posterior thigh, but is decreased with knee flexion. Left side is negative. Gaenslen's and Rosalio's maneuvers are negative bilaterally. The patient is able to stand, again has some difficulty standing on his toes on his right leg, but is using a brace, which helps. He is walking with a slight shuffling gait, appears to favor the right lower extremity to a mild extent, again better with the lower leg and ankle brace. Options were discussed with the patient. The patient's old chart was reviewed as his current medication regimen updated. Current review of systems updated today as well. We will preauthorize the patient for a second in the series of lumbar epidural steroid injection as the patient had done quite well with the first injection by 80% improvement for several weeks following still an L5-S1 dermatomal distribution radiculopathy on the right side. We will have him return for a L5-S1 translaminar approach epidural steroid injection in approximately 2 weeks as scheduled. The patient will continue doing stretching and strengthening exercise as well as walking daily as he has been doing and follow up as scheduled. LESTER HARRIS MD DR: ED/katheryn JOB#: [id number] / [id number]
== END | disposition home or self-care (01) ==
LOC: PNCL 09:59
PROVIDERS: ATTEND Anesthesiology
DX: M48.061 Spinal stenosis, lumbar region without neurogenic claudication (principal); M47.26 Other spondylosis with radiculopathy, lumbar region
CPT/HCPCS: G0463

== ENCOUNTER → 2018-07-09 | Outpatient (CLI) | payer OTHER ==
[2015-10-05 09:47] VITALS: BP 122/83
[~2018-07-09] MED LIST changes: +IOHEXOL 180 MG/ML 10 ML VIAL. ONE; +methylPREDNISolone ACETATE 40 MG/ML VIAL. ONE; +methylPREDNISolone ACETATE 80 MG/ML VIAL. ONE
--- NOTE | 2018-07-10 02:06 | PAIN ---
DATE OF SERVICE: 07/09/2018 PROGRESS NOTE FOR PAIN CLINIC DIAGNOSIS: Lumbar radiculopathy with lumbar spinal stenosis and lumbar spondylosis. HISTORY OF PRESENT ILLNESS: The patient is a 72-year-old male who returns for followup status post lumbar epidural steroid injection x 1 of series on 06/04/2018. The patient did very well with the injection, reports about 85% improvement in the low back and bilateral lower extremity pain. The patient reports still more pain on the right side than the left, but has been doing quite well. The patient reports pain began to return about a week ago or so with increased activity, standing, walking, changing positions and better with sleeping or lying down or sitting. The patient reports it is across the low back, in the bilateral lower extremities, more on the right than the left, right posterior gluteus, posterior thigh, posterior calf, tingling, burning and radiating pain, sometimes sharp, sometimes dull across the back, worse with activity as noted. The patient reports 8-9 on a scale of 10 at its worst, 8 on average and 6 at its least and 6 today. The patient reports no new motor or sensory deficits, no new bowel or bladder incontinence. He was initially increasing distance walking, doing walking and household activities with greater ease and comfort. PHYSICAL EXAMINATION: VITAL SIGNS: The patient's blood pressure is 154/83, pulse 78, respirations 16, temperature is 97.3 degrees Fahrenheit, height is 5 feet 8 inches and weight is 151 pounds. GENERAL: The patient is awake, alert, oriented, appropriate, very pleasant demeanor. HEENT: Head is normocephalic, atraumatic. Extraocular movements are intact and symmetrical. Oral cavity: Mucous membranes are moist and pink. Dentition is intact. NECK: Shows anterior throat supple without palpable lymphadenopathy noted. Swallow reflex symmetrical. CHEST: Shows normal on inspection. Breath sounds clear to auscultation bilaterally. HEART: Shows S1, S2 clear. No murmurs auscultated. ABDOMEN: Soft, nontender, nondistended. No palpable organomegaly is noted. No rebound or guarding demonstrated. BACK: Shows spine grossly in the midline. Normal-appearing thoracic kyphosis and lumbar lordotic curvature. Lumbar paraspinous muscle shows symmetrical on inspection; on palpation shows some moderate tenderness diffusely bilaterally, but only diffusely without significant radiation. The patient has good rotational motion of lumbar spine, both laterally as well as extension and flexion without significant pain. EXTREMITIES: Lower extremities show deep tendon reflexes 1+/4 in the patellar and tendo-calcaneus tendons. Motor exam is 3 on a scale of 5 to 4 on the right dorsiflexion, extension and 5/5 on the left. Quadriceps and hamstring flexion is 5/5 and equal. Peripheral pulses are 1+ posterior tibia. No peripheral edema is noted bilaterally. Options were discussed with the patient. The patient's old chart was reviewed as was her current medication regimen updated. Current review of systems updated today as well. We will proceed with a second in the series of lumbar epidural steroid injection today with fluoroscopic guidance. Risks were again discussed including, but not limited to bleeding, infection, possibility of epidural hematoma, subsequent neurological compromise, dural puncture, headaches, spinal cord and/or nerve damage, side effects of steroid medication and poor results regarding pain control. The patient understands and wished to proceed. The patient will return to clinic in approximately 2 weeks for followup, was counseled as to return appointment, activity level and side effects to be aware of. DIAGNOSES: Lumbar radiculopathy with lumbar spinal stenosis and lumbar spondylosis. PROCEDURES: Lumbar epidural steroid injection, translaminar approach L5-S1 level using C-arm fluoroscopic guidance under sterile prep and drape using local anesthetic. MEDICATION INJECTED: A total of 120 mg Depo-Medrol plus 10 mL of preservative-free normal saline and 2 mL of isovue for contrast. CONDITION AT DISCHARGE: Stable. The patient tolerated the procedure well, had no complications. LESTER HARRIS MD DR: ED/katheryn JOB#: [id number] / [id number]
== END | disposition home or self-care (01) ==
LOC: PNCL 09:42
PROVIDERS: ATTEND Anesthesiology
DX: M48.061 Spinal stenosis, lumbar region without neurogenic claudication (principal); M47.26 Other spondylosis with radiculopathy, lumbar region; Z88.8 Allergy status to other drugs, medicaments and biological substances
CPT/HCPCS: 62323; J1030; J1040; Q9965

== ENCOUNTER → 2018-09-24 | Outpatient (CLI) | payer OTHER ==
[2015-10-05 09:47] VITALS: BP 122/83
[~2018-09-24] MED LIST changes: -IOHEXOL 180 MG/ML 10 ML VIAL. ONE; -methylPREDNISolone ACETATE 40 MG/ML VIAL. ONE; -methylPREDNISolone ACETATE 80 MG/ML VIAL. ONE
--- NOTE | 2018-09-24 16:40 | RAD ---
CT lumbar spine without contrast 09/24/2018 CLINICAL HISTORY: History of spinal canal stenosis. Right foot drop. TECHNIQUE: Unenhanced, contiguous, 0.625 mm axial sections were obtained the lumbar spine. 3 mm reconstructed sagittal, axial and coronal images were obtained. One or more of the following individualized dose reduction techniques were utilized for this study: 1. Automated exposure control. 2. Adjustment of the mA and/or kV according to patient size. 3. Use of iterative reconstruction technique. FINDINGS: Comparison is made to an MRI of the lumbar spine dated 04/09/2018. Sagittal and coronal reconstructed images demonstrate mild to moderate S-shaped curvature of the thoracolumbar spine. Degenerative changes consisting of varying degrees of disc space narrowing, vertebral endplate sclerosis and mild to moderate anterior and posterior vertebral body osteophyte formation along with vacuum disc phenomenon are seen throughout the lumbar disc spaces. Atherosclerotic calcification of the abdominal aorta and its branches is seen. At the T12-L1 disc space there is a mild to moderate generalized disc bulge. This is eccentric to the right. Degenerative changes are seen involving the facet joints bilaterally. There is mild to moderate ligamentum flavum hypertrophy bilaterally. These findings when combined result in mild to moderate central spinal canal stenosis. Moderate right neural foraminal stenosis is seen. The left neural foramen is patent. At the L1-2 disc space there is a moderate generalized disc bulge. This is eccentric to the right. Degenerative changes are seen involving the facet joints bilaterally. There is moderate ligamentum flavum hypertrophy bilaterally. These findings when combined result in moderate central spinal canal stenosis. Mild to moderate right greater than left neural foraminal stenosis is seen. At the L2-3 disc space there is a mild to moderate generalized disc bulge. Degenerative changes are seen involving the facet joints bilaterally. There is mild to moderate ligamentum flavum hypertrophy bilaterally. These findings when combined result in moderate to severe central spinal canal stenosis. Mild bilateral neural foraminal stenosis is seen. At the L3-4 disc space there is a mild to moderate generalized disc bulge. This is eccentric to the left. Degenerative changes are seen involving the facet joints bilaterally. There is moderate ligamentum flavum hypertrophy bilaterally. These findings when combined result in severe central spinal canal stenosis. Severe left neural foraminal stenosis is seen. The right neural foramen is patent. At the L4-5 disc space there is a moderate generalized disc bulge. Degenerative changes are seen involving the facet joints bilaterally. There is moderate ligamentum flavum hypertrophy bilaterally. These findings when combined result in severe central spinal canal stenosis. Mild right greater than left neural foraminal stenosis is seen. At the L5-S1 disc space is a mild to moderate generalized disc bulge. Degenerative changes are seen involving the facet joints bilaterally. There is mild ligament flavum hypertrophy bilaterally. These findings when combined result in mild to moderate central spinal canal stenosis. Mild to moderate right greater than left neural foraminal stenosis is seen. IMPRESSION: The changes of degenerative disc disease are seen throughout the lower thoracic and lumbar spine. These findings result in mild to moderate central spinal canal stenosis at T12-L1, moderate central spinal canal stenosis at L1-2, severe central spinal canal stenosis at L2-3, L3-4 and L4-5 and mild to moderate central spinal canal stenosis at L5-S1. Multilevel neural foraminal stenosis of varying severity is seen as discussed above. Electronically signed by: Rickey Blakely MD (09/24/2018 4:37 PM) [id number]
== END | disposition home or self-care (01) ==
LOC: CT 10:25
PROVIDERS: ATTEND Neurological Surgery
DX: M51.35 Other intervertebral disc degeneration, thoracolumbar region (principal); M48.04 Spinal stenosis, thoracic region; M48.07 Spinal stenosis, lumbosacral region; M41.20 Other idiopathic scoliosis, site unspecified; M25.78 Osteophyte, vertebrae; I70.0 Atherosclerosis of aorta; M89.38 Hypertrophy of bone, other site
CPT/HCPCS: 72131

== ENCOUNTER → 2018-12-15 | Outpatient (CLI) | payer OTHER ==
[2015-10-05 09:47] VITALS: BP 122/83
[~2018-12-15] MED LIST changes: +OMEP40CA45 PO; -OMEP40CA5 PO
--- NOTE | 2018-12-15 16:53 | PAIN ---
DATE OF SERVICE: 12/15/2018 PROGRESS NOTE FOR PAIN CLINIC DIAGNOSIS: Lumbar radiculopathy with lumbar spinal stenosis and lumbar spondylosis. HISTORY OF PRESENT ILLNESS: The patient is a 73-year-old male who returns for followup status post lumbar epidural steroid injections with good results. The patient most recently had one on 07/09 and did very well with about a 75% improvement after the injection. The patient reports the pain is returning over the past week or 2 weeks in the low back into the right lower extremity, mostly in the posterior gluteus, posterior thigh, posterior calf, radiating in a radicular pattern into the foot and ankle. The patient has a foot drop on the right side as well. He has recently seen his neurosurgeon, Dr. Luiz Almonte who is recommending conservative nonsurgical therapy at this time and he has been recommending potential spinal cord stimulator in the future if the patient's symptoms persist. The patient reports he would like to know more about this. We will give him some information about this today. Otherwise, the patient continues to do some stretching and strengthening exercises. He is walking daily. He is using a cane now in his left hand when he ambulates and he has a brace on his right ankle for his foot drop. The patient reports the pain is a 9 on a scale of 10 at its worst over the past week, 7 on average, 6 at its least and is 6 today. The patient reports it is shooting, tingling, burning, radiating in the lower extremity. Again, better with resting. It is worse with activity, but he is still exercising, stretching and strengthening daily and is doing daily walking. The patient reports no loss of motor function, no new bowel or bladder incontinence or other complaints. PHYSICAL EXAMINATION: VITAL SIGNS: The patient's blood pressure 167/95, pulse 99, respirations 18, temperature 98.5 degrees Fahrenheit, height is 5 feet 8 inches and weight is 156 pounds. GENERAL: The patient is awake, alert, oriented, appropriate, very pleasant demeanor. HEENT: Head shows normocephalic, atraumatic. Extraocular movements are intact and symmetrical. Oral cavity: Mucous membranes moist and pink. Dentition is intact. NECK: Shows anterior throat supple without palpable lymphadenopathy noted. Swallow reflex symmetrical. CHEST: Shows normal on inspection. Breath sounds clear bilaterally. HEART: Shows S1, S2 clear. No murmurs auscultated. ABDOMEN: Soft, nontender, nondistended. No palpable organomegaly is noted. No rebound or guarding demonstrated. BACK: Shows spine grossly in the midline. Normal appearing thoracic kyphosis and minor flattening of lumbar lordotic curvature. Lumbar paraspinous muscle shows symmetrical on inspection, on palpation shows some moderate tenderness diffusely bilaterally going diffusely without radiation. EXTREMITIES: The patient's lower extremities show deep tendon reflexes at 1+ in the patellar and tendo calcaneus tendons. Motor exam is approximately 3 on a scale of 5 on the right with dorsiflexion and extension, 5/5 on the left. There is significant foot drop noted on the right side with voluntary movement and with walking. Left side is intact and strong. Peripheral pulses are 1+ posterior tibia. No peripheral edema is noted. Straight leg raise noted to be mildly positive on the right at about 40-45 degrees but is negative on the left. Again, the patient is walking with a cane for help ambulation and has a significant limp, does favor the right lower extremity and again with foot drop without the brace on the right side. Options were discussed with the patient. The patient's old chart was reviewed as his current medication regimen updated. Current review of systems updated today as well and we will preauthorize the patient for a lumbar epidural steroid injection. He has done very well with these in the past with still persistent L5-S1 radiculopathy on the right lower extremity. We will plan for L5-S1 translaminar lumbar epidural steroid injection on the patient's return. In the meantime, the patient will be given refill for hydrocodone with instructions, side effects to be aware of as well. Continue with stretching and strength exercises on his own as well as walking daily as tolerated. LESTER HARRIS MD DR: ED/katheryn JOB#: [id number] / [id number]
== END ==
LOC: PNCL 14:28
PROVIDERS: ATTEND Anesthesiology
DX: M47.26 Other spondylosis with radiculopathy, lumbar region (principal); M48.061 Spinal stenosis, lumbar region without neurogenic claudication
CPT/HCPCS: G0463

== ENCOUNTER → 2018-12-29 | Outpatient (CLI) | payer OTHER ==
[2015-10-05 09:47] VITALS: BP 122/83
[~2018-12-29] MED LIST changes: +IOHEXOL 180 MG/ML 10 ML VIAL. ONE; +methylPREDNISolone ACETATE 40 MG/ML VIAL. ONE; +methylPREDNISolone ACETATE 80 MG/ML VIAL. ONE
--- NOTE | 2018-12-29 18:53 | PAIN ---
DATE OF SERVICE: 12/29/2018 PROGRESS NOTE FOR PAIN CLINIC DIAGNOSES: Lumbar radiculopathy with lumbar spinal stenosis and lumbar spondylosis. HISTORY OF PRESENT ILLNESS: The patient is a 73-year-old male who returns for followup status post lumbar epidural steroid injections x 2. The patient did very well after the last injection with about 75 plus percent improvement and this was in June. The patient has been preauthorized and would like to proceed again as the pain has been returning in the low back and right lower extremity as it was previously in the posterior gluteus, posterior thigh and posterior calf. The patient reports it is burning and radiating as sharp pain in the back, with radiating shooting pain in the right lower extremity. The patient reports the pain was worse in the last week on a scale of 9/10, 8 on average and 7 at its least and is 8 today. The patient reports it is better with sitting or lying down. It does not awaken him from sleep at night. The patient reports no new motor or sensory deficits. No bowel or bladder incontinence. PHYSICAL EXAMINATION: VITAL SIGNS: The patient's blood pressure is 169/93, pulse 87, respirations 18 and temperature is 97.8 degrees Fahrenheit. Height is 5 feet 8 inches, weight is 154 pounds. GENERAL: The patient is awake, alert, oriented, appropriate, very pleasant demeanor. HEENT: Exam shows normocephalic, atraumatic. Extraocular movements are intact and symmetrical. Oral cavity: Mucous membranes are moist and pink. Dentition is intact. NECK: Shows anterior throat supple without palpable lymphadenopathy noted. Swallow reflex is symmetrical. CHEST: Shows normal on inspection. Breath sounds are clear to auscultation bilaterally. HEART: Shows S1, S2 clear. No murmurs auscultated. ABDOMEN: Soft, nontender and nondistended. No palpable organomegaly is noted. No rebound or guarding demonstrated. BACK: Shows spine grossly in the midline. Normal-appearing thoracic kyphosis, some flattening of the lumbar lordotic curvature. Lumbar paraspinous muscle shows symmetrical on inspection. On palpation, there is some moderate tenderness diffusely in the low lumbar distribution only, but without radiation. The patient has good rotational motion both laterally as well as extension and flexion, without significant increase in pain. EXTREMITIES: Lower extremities showed deep tendon reflexes 1+ in the patellar tendons and tendo calcaneus tendons and are equal. Motor exam is approximately 3-4 on a scale of 5 on the right with dorsiflexion and extension and 5/5 on the left. Peripheral pulses are 1+ posterior tibia. No peripheral edema is noted bilaterally. Options were discussed with the patient. The patient's old chart was reviewed as was his current medication regimen updated. Current review of systems updated today as well. We will proceed with a third in the series of lumbar epidural steroid injection today with fluoroscopic guidance. Risks were again discussed including, but not limited to, bleeding, infection, possibility of epidural hematoma, subsequent neurological compromise, dural puncture, headaches, spinal cord and/or nerve damage, side effects of steroid medication and poor results regarding pain control. The patient understands and wishes to proceed. The patient will return to the clinic in approximately 2 weeks for followup. He was counseled on his return appointment, activity level and side effects to be aware of. DIAGNOSES: Lumbar radiculopathy with lumbar spinal stenosis and lumbar spondylosis. PROCEDURE: Lumbar epidural steroid injection in a translaminar approach at L5-S1 level using C-arm fluoroscopic guidance under sterile prep and drape using local anesthetic. MEDICATION INJECTED: A total of 120 mg Depo-Medrol plus 10 mL of preservative-free normal saline and 2 mL of contrast. CONDITION AT DISCHARGE: Stable. The patient tolerated the procedure well, had no complications. LESTER HARRIS MD DR: ED/katheryn JOB#: [id number] / [id number]
== END ==
LOC: PNCL 10:13
PROVIDERS: ATTEND Anesthesiology
DX: M47.26 Other spondylosis with radiculopathy, lumbar region (principal); M48.061 Spinal stenosis, lumbar region without neurogenic claudication
CPT/HCPCS: 62323; J1030; J1040; Q9965

== ENCOUNTER 2019-01-19 12:19 | Emergency (ER) | payer OTHER ==
[~2019-01-19] VITALS: Ht 170.2 cm; Wt 73.9 kg
[~2019-01-19 12:19] MED LIST changes: -IOHEXOL 180 MG/ML 10 ML VIAL. ONE; -methylPREDNISolone ACETATE 40 MG/ML VIAL. ONE; -methylPREDNISolone ACETATE 80 MG/ML VIAL. ONE
[2019-01-19] MEDS ORDERED: HYDROmorphone 2 MG/ML VIAL IV ONE (13:30)
[2019-01-19] MEDS ORDERED: PROPOFOL 10 MG/ML (20ML) VIAL. IV ONE (13:30)
--- NOTE | 2019-01-19 13:56 | RAD ---
SHOULDER 2+V RIGHT History: Right shoulder pain. Trauma. Technique: 2 views right shoulder. Comparison: None. Findings: Right anterior inferior glenohumeral dislocation. Normal alignment of the acromioclavicular joint. Mild acromioclavicular DJD. No acute fracture. Impression: 1. Right anterior inferior glenohumeral dislocation. Electronically signed by: Dickson Piña DO (01/19/2019 1:54 PM) [id number]
[2019-01-19 14:05] VITALS: BP 136/75
[2019-01-19] MEDS ORDERED: IV NORMAL SALINE 1000ML BAG 1,000 ML IV ONE (14:30)
--- NOTE | 2019-01-19 15:06 | PHYS DOC ---
Past Medical History Past Medical History: High Cholesterol, Hypertension Additional Past Medical Histor: CHRONIC BACK PAIN Additional Past Surgical Histo: BLADDER SX Alcohol Use: Occasionally Drug Use: None Adult General Chief Complaint Chief Complaint: SHOULDER INJURY [facility] HPI Patient is a 73-year-old right-handed male who presented to ER with complaining of right shoulder injury. Patient states he slipped at the shower 4 days ago and landed on right arm with constant pain in right shoulder since his injury and unable to move his arm. Patient denies loss of consciousness and other injuries. Patient was seen by his primary care physician yesterday and had x-ray of his shoulder today that reported dislocation of right shoulder and was advised to come to ER. Patient rated his pain 10 over 10 and denies history of shoulder dislocation and focal neurodeficit. Review of Systems Review of Systems Constitutional: Denies fever or chills [] Eyes: Denies change in visual acuity, redness, or eye pain [] HENT: Denies nasal congestion or sore throat [] Respiratory: Denies cough or shortness of breath [] Cardiovascular: No additional information not addressed in HPI [] GI: Denies abdominal pain, nausea, vomiting, bloody stools or diarrhea [] : Denies dysuria or hematuria [] Musculoskeletal: Denies back pain, reports joint pain [] Integument: Denies rash or skin lesions [] Neurologic: Denies headache, focal weakness or sensory changes [] Endocrine: Denies polyuria or polydipsia [] All other systems were reviewed and found to be within normal limits, except as documented in this note. Current Medications Current Medications Current Medications Medications (Trade) Dose Ordered Sig/Estuardo Start Time Stop Time Status Last Admin Dose Admin Hydromorphone HCl (Dilaudid) 2 mg 1X ONCE 01/19/19 13:30 01/19/19 13:52 DC 01/19/19 13:30 2 MG Propofol (Diprivan) 200 mg 1X ONCE 01/19/19 13:30 01/19/19 13:52 DC 01/19/19 13:30 200 MG Sodium Chloride 1,000 ml @ 100 mls/hr 1X ONCE 01/19/19 14:30 01/19/19 16:50 DC 01/19/19 14:30 100 MLS/HR Allergies Allergies Allergies Coded Allergies Type Severity Reaction Last Updated Verified SKYLAR Inhibitors Allergy Intermediate Unknown 10/05/15 Yes Physical Exam Physical Exam Constitutional: Well developed, well nourished, mild distress, non-toxic appearance. [] HENT: Normocephalic, atraumatic. Eyes: PERRLA, EOMI, conjunctiva normal, no discharge. [] Neck: Normal range of motion, no tenderness, supple, no stridor. [] Cardiovascular:Heart rate regular rhythm, no murmur [] Lungs & Thorax: Bilateral breath sounds clear to auscultation [] Extremities: Right shoulder reveals deformity matching with dislocation and limited range of motion without neurovascular deficit Neurologic: Alert and oriented X 3, no focal deficits noted. [] Psychologic: Affect normal, judgement normal, mood normal. [] Current Patient Data Vital Signs Vital Signs Date Time Temp Pulse Resp B/P (MAP) Pulse Ox O2 Delivery O2 Flow Rate FiO2 01/19/19 16:12 76 14 134/76 (95) 97 Room Air 01/19/19 15:45 2.0 01/19/19 14:05 98.4 98.3 EKG EKG [] Radiology/Procedures Radiology/Procedures [][address] [id number] IMAGING REPORT Signed PATIENT: KATIE ECHEVERRIA ACCOUNT: [id number] : 1945 LOCATION: ER AGE: 73 SEX: M EXAM STATUS: REG ER ORD. PHYSICIAN: NON,STAFF REASON: PAIN, RT SHOULDER PAIN PT FELL PROCEDURE: SHOULDER 2+V RIGHT SHOULDER 2+V RIGHT History: Right shoulder pain. Trauma. Technique: 2 views right shoulder. Comparison: None. Findings: Right anterior inferior glenohumeral dislocation. Normal alignment of the acromioclavicular joint. Mild acromioclavicular DJD. No acute fracture. Impression: 1. Right anterior inferior glenohumeral dislocation. Electronically signed by: Dickson Piña DO (01/19/2019 1:54 PM) [id number] DICTATED and SIGNED BY: DICKSON PIÑA DO DATE: 01/19/[address] [id number] IMAGING REPORT Signed PATIENT: KATIE ECHEVERRIA ACCOUNT: [id number] : 1945 LOCATION: ER AGE: 73 SEX: M EXAM STATUS: REG ER ORD. PHYSICIAN: SAM SHIELDS MD REASON: postreduction PROCEDURE: SHOULDER 2+V RIGHT EXAM: Right shoulder, 2 views. HISTORY: Closed reduction. COMPARISON: 01/19/2019 FINDINGS: 2 views of the right shoulder obtained. There has been closed reduction of the right shoulder into anatomic alignment. 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 No convincing Hill-Sachs or Bankart lesion is seen. There is facet arthropathy involving the cervical spine. There is a cardiac pacemaker lead partially included on the [id number]. IMPRESSION: Interval closed reduction of the right shoulder. Electronically signed by: Fiorella Tucker MD (01/19/2019 3:35 PM) [facility] DICTATED and SIGNED BY: FIORELLA TUCKER MD DATE: 01/19/19 153 Course & Med Decision Making Course & Med Decision Making Pertinent Imaging studies reviewed. (See chart for details) Evaluation of patient in ER showed 73-year-old male patient sent from primary care physician office with diagnosis of shoulder dislocation that happened 4 days ago. Patient had successful reduction of right shoulder dislocation at 1458 with conscious sedation. Patient tolerated the procedure well. Shoulder immobilizer was applied and patient was advised to follow-up with monogram technician orthopedic physician. I've spoken with the patient and/or caregivers. I've explained the patient's condition, diagnosis and treatment plan based on information available to me at this time. I've answered the patient's and/or caregivers questions and addressed any concerns. The patient and/or caregivers have a good understanding the patient's diagnosis, condition and treatment plan as can be expected at this point. Vital signs have been stabilized. The patient's condition is stable for discharge from the emergency department. The patient will pursue further outpatient evaluation with her primary care provider or other designated consulting physician as outlined in the discharge instructions. Patient and/or caregivers are agreeable to this plan of care and follow-up instructions have been explained in detail. The patient and/or caregivers have received these instructions in written format and expressed understanding of these discharge instructions. The patient and her caregivers are aware that if any significant change in condition or worsening of symptoms should prompt him to immediately return to this of the closest emergency department. If an emergent department is not readily available I would encourage him to call 911. Sis Disclaimer Dragon Disclaimer This electronic medical record was generated, in whole or in part, using a voice recognition dictation system. Departure Departure Impression: Primary Impression: Dislocation of right shoulder joint Additional Impression: Fall at home Disposition: HOME, SELF-CARE (at 1559) Condition: IMPROVED Referrals: RYAN ABBOTT MD (PCP) ANITA CHAVEZ MD Patient Instructions: Shoulder Dislocation Additional Instructions: Follow-up with orthopedic physician in 2 or 3 days Follow-up with your primary care physician in 3-5 days Return to ER if not getting better Scripts Hydrocodone/Apap 5-325 (NORCO 5-325 TABLET) 1 Each Tablet 1 TAB PO PRN Q6HRS PRN for PAIN, #10 TAB 0 Refills Prov: SAM SHIELDS MD 01/19/19 Joint Reduction Procedure Joint Indication: Shoulder dislocation Consent: Consent was obtained. Procedure: The pre-reduction exam showed distal perfusion and neurologic function to be normal.. The patient was placed in the appropriate position. Anesthesia/pain control given with 1 mg of Dilaudid and handed milligram of propofol. Reduction of the right shoulder anterior dislocation was performed by manipulation. Post reduction films were obtained and revealed satisfactory reduction. A post-reduction exam revealed distal perfusion and neurologic function to be normal. The affected area was immobilized with a shoulder immo bilizer. The patient tolerated the procedure well. Complications: none. MODERATE SEDATION ASSESSMENT* RISKS/ALTERNATIVES Risks/Alternatives Risks and alternatives of this type of sedation and procedure discussed with: RISK/ALTERNATIVES: Patient H & P ON CHART H & P H & P on chart and reviewed for co-morbid conditions and appropriate labs. H&P ON CHART: Yes STATUS PREG STATUS ASSESSED: N/A MEDS/ALLERGIES REVIEWED Meds/Allergies Reviewed Medications and Allergies including time and route of recently administered narcotics and sedatives. MEDS/ALLERGIES REVIEWED: Yes ASA RATING ASA RATING: I AIRWAY ASSESSMENT Airway Assessment Airway patency, oral function limitations, presence of caps, crowns, dentures, partials, and ability to extend neck assessed. AIRWAY ASSESSMENT: Yes MALLAMPATI SCORE MALLAMPATI SCORE: I PRE-SEDATION ASSESSMENT PRE-SEDATION ASSESSMENT: Yes Procedural Sedation Proc Sed Indication: Right shoulder dislocation Consent: I have discussed with the patient and/or the patient telephone services sales representative the indication, alternatives, and the possible risks and /or complications of the planned procedure and the anesthesia methods. The patient and/or patient telephone services sales representative appear to understand and agree to proceed. Pre-Sedation Documentation and Exam: Unremarkable Airway Assessment: normal. Prior History of Anesthesia Complications: none. ASA Classification: I Sedation/ Anesthesia Plan: Dilaudid and Propofol Medications Used: see nursing notes. Monitoring and Safety: The patient was placed on a metallurgical lab technician and vital signs, pulse oximetry and level of consciousness were continuously evaluated throughout the procedure. The patient was closely monitored until recovery from the medications was complete and the patient had returned to baseline status. Respiratory therapy was on standby at all times during the procedure. (The following sections must be completed) Post-Sedation Vital Signs: O2 sat of 100% on 2 L of oxygen and blood pressure of 120/80 with heart rate of Post-Sedation Exam: Normal neuro exam Complications: none. Vital Signs Vital Signs Date Time Temp Pulse Resp B/P (MAP) Pulse Ox O2 Delivery O2 Flow Rate FiO2 01/19/19 16:12 76 14 134/76 (95) 97 Room Air 01/19/19 15:45 2.0 01/19/19 14:05 98.4 98.3 Problem Qualifiers Primary Impression: Dislocation of right shoulder joint Encounter type: initial encounter Qualified Codes: S43.004A - Unspecified dislocation of right shoulder joint, initial encounter Additional Impression: Fall at home Encounter type: subsequent encounter Qualified Codes: W19.XXXD - Unspecified fall, subsequent encounter; Y92.009 - Unspecified place in unspecified non-institutional (private) residence as the place of occurrence of the external cause SAM SHIELDS MD Jan 19, 2019 15:06
--- NOTE | 2019-01-19 15:38 | RAD ---
EXAM: Right shoulder, 2 views. HISTORY: Closed reduction. COMPARISON: 01/19/2019 FINDINGS: 2 views of the right shoulder obtained. There has been closed reduction of the right shoulder into anatomic alignment. 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 No convincing Hill-Sachs or Bankart lesion is seen. There is facet arthropathy involving the cervical spine. There is a cardiac pacemaker lead partially included on the [id number]. IMPRESSION: Interval closed reduction of the right shoulder. Electronically signed by: Fiorella Dawn MD (01/19/2019 3:35 PM) [facility]
[2019-01-19] MEDS ORDERED: HYDR-3164 PO (16:01)
[2019-01-19 16:12] VITALS: BP 134/76
== END 2019-01-19 16:35 | disposition home or self-care (01) ==
LOC: ER 12:19
DX: S43.004A Unspecified dislocation of right shoulder joint, initial encounter (principal); E78.00 Pure hypercholesterolemia, unspecified; I10 Essential (primary) hypertension; G89.29 Other chronic pain; Z88.8 Allergy status to other drugs, medicaments and biological substances; W18.2XXA Fall in (into) shower or empty bathtub, initial encounter; Y93.E1 Activity, personal bathing and showering; Y92.091 Bathroom in other non-institutional residence as the place of occurrence of the external cause; Y99.8 Other external cause status
CPT/HCPCS: 23650; 73030; 99285; J1170; J2704; J7030

== ENCOUNTER → 2021-01-08 | Outpatient (CLI) | payer MEDICARE ==
[2020-06-04 07:49] VITALS: BP 160/76
[~2021-01-08] MED LIST changes: +AMLO-186 PO; -AMLO5TAB10 PO; +CARV3.123 PO; +DOXY100C3 PO; +FOLI0.8C PO; +HYDR-3164 PO; -OMEP40CA45 PO; +OMEP40CA7 PO; +PARO20TA3 PO; +SIMV20TA18 PO
--- NOTE | 2021-01-09 13:39 | RESP ---
DATE OF SERVICE: 01/08/2021 ATTENDING PHYSICIAN: Dr. Quevedo. The patient underwent full pulmonary function testing on 01/08. The FEV1 to FVC ratio was 66%, FEV1 was 90% of predicted 2.20 liters. FVC was 100% of predicted 3.33 liters. Residual volume was elevated. Total lung capacity was elevated. Diffusion capacity was decreased. IMPRESSION: 1. Mild airflow limitation. 2. Decreased diffusion capacity for carbon monoxide. [facility] [place]: [place] TID: [id number]
== END ==
LOC: PF 09:50
PROVIDERS: ATTEND Internal Medicine Nephrology
DX: R94.2 Abnormal results of pulmonary function studies (principal); Z76.82 Awaiting organ transplant status; Z87.891 Personal history of nicotine dependence
CPT/HCPCS: 94010; 94726; 94729

== ENCOUNTER → 2021-08-13 | Outpatient (CLI) | payer MEDICARE ==
[2020-06-04 07:49] VITALS: BP 160/76
--- NOTE | 2021-08-13 15:03 | RAD ---
Exam: XR FOOT_LEFT 3 VIEWS History: Left foot pain Comparison: 05/21/2021 Findings: Decreased osseous mineralization. Redemonstrated hallux valgus and metatarsus primas varus. Mild dege nerative changes of the first metatarsophalangeal joint. Juxta articular erosive change at the first metatarsal head. No fracture or dislocation. Impression: 1. Juxta-articular erosive change at the first metatarsal head may represent gout. 2. Metatarsus primus varus and hallux valgus. Electronically signed by: Dick Gama MD (08/13/2021 3:01 PM) [id number]
== END ==
LOC: PMGORTHO 12:35
PROVIDERS: ATTEND Podiatrist
DX: L03.116 Cellulitis of left lower limb (principal); L89.893 Pressure ulcer of other site, stage 3
CPT/HCPCS: 87075; 87077; 87186